=== PATIENT | female | born 1945 | race Caucasian/White ===

== ENCOUNTER 2019-04-22 07:00 | Outpatient (CLI) | payer MEDICARE, SELFPAY ==
[2019-04-22 11:22] LABS: Basophils # 0.1 10^3/uL (0.0-0.1); Basophils % 1.1 %; Eosinophils # 0.3 10^3/uL (0.0-0.8); Eosinophils % 3.1 %; Hematocrit 41.7 % (37.0-47.0); Hemoglobin 13.1 g/dL (11.5-15.3); Lymphocytes # 2.2 10^3/uL (0.8-4.8); Mean Corpuscular HGB Conc 31.4 g/dL (30.0-36.0); Mean Corpuscular Hemoglobin 30.9 pg (28.0-34.0); Mean Corpuscular Volume 98.3 fL (81-99); Mean Platelet Volume 11.1 fL (7.4-10.4); Monocytes # 0.7 10^3/uL (0.2-0.9); Monocytes % 7.2 %; Neutrophils # 6.5 10^3/uL (1.8-7.7); Nucleated Red Blood Cells % 0 %; Platelet Count 222 10^3/cmm (130-400); Red Blood Count 4.24 10^6/uL (4.1-5.3); Red Cell Distribution Width 13.9 % (12.1-15.1)
[2019-04-22 11:35] LABS: Alanine Aminotransferase 24 U/L (0-33); Albumin Level 4.1 g/dL (3.5-5.2); Alkaline Phosphatase 57 IU/L (35-105); Anion Gap 16.4 (5-19); Aspartate Amino Transferase 16 U/L (0-32); Blood Urea Nitrogen 15 mg/dL (8-23); Calcium 9.5 mg/dL (8.5-10.5); Carbon Dioxide 26 mmol/L (22-29); Chloride 104 mmol/L (98-107); Globulin 3.5 g/dL (1.3-4.6); Glucose 93 mg/dL (65-115); Lactate Dehydrogenase 158 U/L (135-214); Potassium 4.4 mmol/L (3.5-5.1); Sodium 142 mmol/L (136-145); Total Bilirubin 0.8 mg/dL (0.15-1.2); Total Protein 7.6 g/dL (6.6-8.7)
[2019-04-28 15:31] LABS: P210 BCR ALB1 Detected; Prior Results See Report
== END 2019-04-22 07:01 | disposition home or self-care (01) ==
LOC: ONCMED 11:08
PROVIDERS: Family Provider Family Medicine; PCP Internal Medicine Medical Oncology; Visit Provider Internal Medicine Medical Oncology
DX: C92.10 Chronic myeloid leukemia, BCR/ABL-positive, not having achieved remission (principal)
CPT/HCPCS: 36415; 80053; 81206; 83615; 85025

== ENCOUNTER 2019-04-29 13:27 | Outpatient (CLI) | payer MEDICARE, SELFPAY ==
--- NOTE | 2019-04-30 06:41 | ONC FU_ITS ---
Dr. Haile Patient Follow-Up Note Patient: Dhara Aguirre Unit #: [id number]: 1945 Dicatated By: Oscar Haile M.D.Date of Visit:Apr 29, 2019 Onc Med Follow-up/Prog Note Chief Complaint: Chronic myeloid leukemia. History of Present Illness: This is a 73 year-old woman with [place] positive chronic myeloid leukemia. She had been admitted to [facility] in April 2015. Her CBC at that time showed severe leukocytosis with WBC of 193,000 with myeloid predominance and thrombocytosis, platelet count 1,500,000. BCR/abl transcripts and chromosomal translocation was reported on the bone marrow biopsy, 4% blasts. LDH more than 400. She began on the therapy with hydroxyurea 1000 mg twice a day and allopurinol. She was first seen here by Dr. Gurrolaarian was first seen on 05/31/2015. CT of the abdomen and pelvis on 06/09/2015 showed mild hepatosplenomegaly. Quantitative PCR/abl was 54.75 IS. With hydroxyurea her WBC and platelets normalized. Nilotinib 300 mg twice a day began on 06/16/2015. Just 5 days later she was admitted with sepsis, pansinusitis, progressive myalgias, muscle spasms, back pain and she was also noted to have significant pancytopenia, including platelets at 53,000. Nilotinib was stopped. CT of the chest 06/20/2015 showed no pulmonary embolism, but she had subsegmental scattered pulmonary nodules and small mediastinal lymphadenopathy up to 13 mm in the right hilum. Bone scan on 06/22/2015 showed T6 subacute fracture. Echocardiogram on 06/20/2015 showed normal EF 55%, moderate aortic stenosis. Following recovery of her hematological toxicities, nilotinib was restarted on 06/29/2015 at a reduced dosage of 150 mg every other day. She tolerated it well, and she apparently had a good response. However, following her visit with Dr. Hope in July 2015 she failed to return for further followup. On 02/01/2017 she was seen by Dr. Mendoza with multiple complaints including weakness, cough, headache, and leg pain. She had fallen at home. She was evaluated in the emergency and subsequently transferred to [facility] for admission with suspected cerebral hemorrhage. The CT findings there were felt to be more consistent with meningioma near the right vertex. Extra-axial hemorrhage was felt to be unlikely. Her evaluation, though, also revealed a markedly elevated WBC 509,000 with hemoglobin 7.1 g and platelet count 950,000. She apparently also had evidence of pneumonia. She was given antibiotic therapy. She began treatment with hydroxyurea along with allopurinol, and she then began imatinib at 400 mg daily. She was transferred to [facility] at discharge, but the imatinib apparently was not continued there. She subsequently was able to return home to the care of her daughter. A repeat CBC on 02/20/2017 showed hemoglobin up to 8.9 g with WBC 5000 and platelet count 288,000. She was advised to stop the hydroxyurea. She restarted imatinib at 400 mg daily on 02/24/2017. Her quantitative PCR for BCR/abl came back at 23.54. I had seen her initially on 03/06/2017. At that point she was off hydroxyurea, and she continued imatinib at 400 mg daily. On her follow-up CBC from 03/15/2017 her hemoglobin had dropped to 9.3 g with white blood cell count 2100 and platelet count 204,000. With the decline in her blood count, did have her stop the imatinib. Her blood counts had subsequently increased significantly. I had seen her for a follow-up visit on 04/10/2017. At that point she restarted hydroxyurea together with imatinib at 400 mg daily. Her medical history is significant for a previous stroke associated with cerebral aneurysm, for which she underwent some type of clipping procedure sometime around 1998. She has had significant associated short-term memory loss/dementia. Her other medical illnesses include COPD and moderate aortic stenosis. Other surgeries include hysterectomy/BSO and tonsillectomy. She has a prior history of smoking up to 2 packs of cigarettes daily. She does not drink alcohol. Her family history is positive for heart disease, diabetes, and stroke. INTERIM HISTORY: Her subsequent CBCs had shown gradual decline in her white count. As of 05/07/2017 it was down to 3300 with hemoglobin slightly low at 11.5 g and platelet count normal at 201,000. At that point she was advised to stop the hydroxyurea. She continued the imatinib at 400 mg daily. As of her follow-up visit on 08/14/2017 her quantitative PCR was back up to 46.6208, and at that point she increased the imatinib dosage to 400 mg twice a day. As of her follow-up visit on 11/25/2017 her quantitative PCR remained significantly elevated, and at that point her treatment was transitioned to nilotinib at a reduced dosage of 150 mg twice a day. As of 02/14/2018 the quantitative PCR was down to 7.5063 compared to 20.4411 in November 2017. However, her repeat quantitative PCR on 06/21/2018 had increased to 13.650, and following her visit on 07/05/2018 the nilotinib dosage was increased to 300 mg twice a day. She failed to return for her scheduled visit in October. As of her follow-up visit in January 2019 the quantitative PCR had decreased to 7.358. She continued meloxicam 300 mg twice daily. She is seen for a follow-up visit. She has been doing okay. She is not very active, and her daughter indicates that she prefers mostly to just sit. Her ECOG score is 2. Her appetite has been good. She recently had fever in association with a cold. She has not had night sweating. She still has some residual cough. She does not complain of shortness of breath or chest pain. She has diarrhea about every other day. It is managed adequately with anti-diarrhea medication. She has frequent urination. Her pain is managed adequately with medication. She has headaches and her balance is not good. She has had decline in cognitive function, and her daughter thinks that she may now be deveoping dementia. Medications: Acetaminophen 1 (325 mg) Capsule Oral four times a day PRN, Albuterol Sulfate 1 ((2.5 mg/3ml) 0.083%) Nebulization solution Inhalation four times a day PRN, Aspirin 1 (81 mg) Tablet Oral daily, Daytime Cold & Flu Relief 1 Capsule (of 10-5-325 mg) Oral daily, Hydrocodone-Acetaminophen 1 (10-325 mg) Tablet Oral t.i.d. PRN, Ibuprofen 1 (200 mg) Capsule Oral four times a day PRN, Loratadine 1 Tablet (of 10 mg) Oral daily, Melatonin 1 (10 mg) Tablet Oral at bedtime PRN, Multiple Vitamin 1 Tablet Oral daily, Tasigna 2 Tablet (of 150 mg) Capsule Oral b.i.d. Allergies: Penicillin G Benzathine and Sulfabenzamide. Review of Systems: Constitutional - Her energy is low. She is up and around at home. Her appetite is good and her weight is stable. About 2 weeks ago, she ran a fever with a cold. No chills, hot flashes, or night sweats. ECOG score is 2, ENMT - No sinus congestion/drainage. No mouth sores. No sore throat or difficulty swallowing, Hematologic/Lymphatic - She bruises easily, Respiratory - No shortness of breath. She has a slight cough. No pleuritic pain or hemoptysis, Cardiovascular - No angina pain. No palpitations, Gastrointestinal - No nausea or vomiting. No heartburn or acid reflux. She has frequent diarrhea, probably about every other day. She takes Imodium to help control her bowels. No blood in the stool or black stools, Genitourinary (F) - No dysuria or hematuria. She has urinary frequency. No urgency or incontinence, Musculoskeletal - No joint or bone pain, Integumentary - No skin complications, Neurologic - She has a headache. She has some weakness and dizziness when she first gets up. No numbness/paresthesias or other focal neurologic symptoms, Psychiatric - No anxiety or depression. No insomnia. Vital Signs: Performed on Apr 29, 2019 13:58 Height - 62.50 in Weight - 154.4 lbs (LOW) BSA - 1.72 sq.m BMI - 27.79 Temperature - 97.9 F (LOW) Pulse - 91 /min Respiration - 18 /min BP - 125/67 mm(hg) O2 Sat - 97 % Pain - 6 Physical Examination: Constitutional - She does not appear acutely ill, Eyes - Sclerae nonicteric. Conjunctivae clear, ENMT - No lesions noted in the oral cavity, Hematologic/Lymphatic - No cervical, clavicular, or axillary adenopathy, Respiratory - Lungs sound clear with diminished air movement bilaterally, Cardiovascular - Heart rhythm is regular. There is a II/ systolic murmur. There is no gallop or rub noted, Abdomen - Soft. Liver and spleen are not enlarged. There is no abdominal mass or ascites noted and there is no inguinal adenopathy, Extremities - No edema, Neurologic - No focal neurologic deficits noted. Lab/Imaging: Test performed on Apr 22, 2019 07:00 LDH (Total) 158 U/L Sodium 142 mmol/L Potassium 4.4 mmol/L Chloride 104 mmol/L CO2 26 mmol/L Anion Gap 16.4 BUN 15 mg/dL Creatinine 0.9 mg/dL Cr Clearance (Est) 60.8700 mL/min Glucose 93 mg/dL Calcium 9.5 mg/dL Protein, Total 7.6 g/dL Albumin 4.1 g/dL Globulin 3.5 g/dL Bilirubin, Total 0.8 mg/dL ALT (SGPT) 24 U/L AST (SGOT) 16 U/L Alkaline Phosphatase 57 IU/L WBC 10.0 10 3/uL RBC 4.24 10 6/uL HGB 13.1 g/dL HCT 41.7 % MCV 98.3 fL MCH 30.9 pg MCHC 31.4 g/dL RDW 13.9 % Platelet Count 222 10 3/cmm MPV 11.1 fL Neutrophils 6.5 10 3/uL Lymphocytes 2.2 10 3/uL Monocytes 0.7 10 3/uL Eosinophils 0.3 10 3/uL Basophils 0.1 10 3/uL Neutrophil % 65.0 % Lymphocyte % 22.0 % Monocyte % 7.2 % Eosinophil % 3.1 % Basophils % 1.1 % The quantitative PCR for BCR/abl has increased to 17.154. Impression: 1. Patient with [place] chromosome positive chronic myelooid leukemia, initially diagnosed in April 2015. 2. She had a good response to initial treatment with hydroxyurea, following which she began treatment with nilotinib. She experienced multiple toxicities with a standard dosage of 300 mg bid. 3. She tolerated it well at a reduced dosage of 150 mg every other day. She subsequently was lost to followup and stopped treatment sometime during 2017. Reasons for that are unclear. 4. She was admitted to [facility] on 02/02/2017 with evidence of relapse/progression include WBC > 500,000, Hg 7.1 g, and platelet count 950,000. She was felt to be in chronic phase, though. She had responded well to hydroxyurea, which was stopped as of 02/20/2017. 5. She then began treatment with imatinib 400 mg daily. Her other medical illnesses include: 6. She underwent clipping of cerebral aneurysm approximately 1998. She had associated stroke with subsequent dementia/short term memory loss. 7. COPD with recent pneumonia. 8. She has moderate aortic stenosis by echocardiogram. She had initially continued the imatinib at 400 mg daily. As of 03/15/2017 her treatment was put on hold due to declining blood counts with hemoglobin down to 9.3 g and white blood cell count down to 2100. As of her follow-up visit on 04/10/2017 her blood counts had increased significantly, and at that point she restarted hydroxyurea in combination with imatinib 400 mg daily. Her subsequent CBCs had shown gradual decline in her white blood cell count, and she remained slightly anemic. As of 05/07/2017 the hydroxyurea was discontinued. She continued imatinib at 400 mg daily. She had been showing gradual improvement in her performance status. However, as of her follow-up in August 2017 there was a significant increase in her quantitative PCR. Her imatinib dosage was then increased to 400 mg twice a day. As of November 2017 her quantitative PCR remained significantly elevated, and at that point her treatment was transitioned to nilotinib at a reduced dosage of 150 mg twice a day. As of February 2018 the PCR there was a significant decline in the quantitative PCR. She has tolerated it well at that dosage. However, her repeat PCR on 06/21/2018 was significantly increased, and following her visit on 07/05/2018 the nilotinib dosage was increased to 300 mg twice a day. She has been able to tolerate it with acceptable toxicity. Initially her quantitative PCR had shown a significant decline, but it is now increasing again. Her overall clinical status appears stable, though her daughter feels that she is showing some further decline in her cognitive function. Plan: She will have further evaluation with a BCR/abl mutation analysis. She will be started on a 3rd-line treatment when those results are available. Signed By: Oscar Haile M.D. <<Signature on File>>
== END 2019-04-29 13:28 | disposition home or self-care (01) ==
LOC: ONCMED 13:30
PROVIDERS: Family Provider Family Medicine; PCP Internal Medicine Medical Oncology; Visit Provider Internal Medicine Medical Oncology
DX: C92.10 Chronic myeloid leukemia, BCR/ABL-positive, not having achieved remission (principal); I35.0 Nonrheumatic aortic (valve) stenosis; J44.9 Chronic obstructive pulmonary disease, unspecified; F17.210 Nicotine dependence, cigarettes, uncomplicated; F03.90 Unspecified dementia, unspecified severity, without behavioral disturbance, psychotic disturbance, mood disturbance, and anxiety; Z79.82 Long term (current) use of aspirin; Z79.899 Other long term (current) drug therapy; Z87.01 Personal history of pneumonia (recurrent); Z86.73 Personal history of transient ischemic attack (TIA), and cerebral infarction without residual deficits
CPT/HCPCS: 36415; 81206; 99214

== ENCOUNTER 2019-09-17 14:18 | Outpatient (CLI) | payer MEDICARE, SELFPAY ==
[2019-09-17 15:07] LABS: Basophils # 0.2 10^3/uL (0.0-0.1); Eosinophils # 0.4 10^3/uL (0.0-0.8); Eosinophils % 3.5 %; Hematocrit 42.7 % (37.0-47.0); Hemoglobin 13.5 g/dL (11.5-15.3); Lymphocytes # 2.6 10^3/uL (0.8-4.8); Lymphocytes % 25.2 %; Mean Corpuscular HGB Conc 31.6 g/dL (30.0-36.0); Mean Corpuscular Hemoglobin 32.1 pg (28.0-34.0); Mean Corpuscular Volume 101.4 fL (81-99); Mean Platelet Volume 10.1 fL (7.4-10.4); Monocytes # 0.7 10^3/uL (0.2-0.9); Monocytes % 6.7 %; Neutrophils # 6.09 10^3/uL (1.8-7.7); Neutrophils % 60.1 %; Nucleated Red Blood Cells % 0 %; Platelet Count 213 10^3/cmm (130-400); Red Blood Count 4.21 10^6/uL (4.1-5.3); Red Cell Distribution Width 13.3 % (12.1-15.1); White Blood Count 10.1 10^3/uL (4.0-10.0)
[2019-09-17 15:22] LABS: Alanine Aminotransferase 17 U/L (0-33); Albumin Level 4.6 g/dL (3.5-5.2); Alkaline Phosphatase 58 IU/L (35-105); Anion Gap 12.2 (5-19); Aspartate Amino Transferase 13 U/L (0-32); Blood Urea Nitrogen 12 mg/dL (8-23); Calcium 9.1 mg/dL (8.5-10.5); Carbon Dioxide 30 mmol/L (22-29); Chloride 101 mmol/L (98-107); Globulin 2.9 g/dL (1.3-4.6); Glucose 72 mg/dL (65-115); Lactate Dehydrogenase 148 U/L (135-214); Osmolality Calculated 283 mOsm/kg (285-295); Potassium 4.2 mmol/L (3.5-5.1); Sodium 139 mmol/L (136-145); Total Bilirubin 0.3 mg/dL (0.15-1.2); Total Protein 7.5 g/dL (6.6-8.7)
[2019-10-21 14:31] LABS: Source SEE COMMENTS
== END 2019-09-17 14:19 | disposition home or self-care (01) ==
LOC: ONCMED 15:05
PROVIDERS: PCP Internal Medicine Medical Oncology; Visit Provider Internal Medicine Medical Oncology
DX: C92.10 Chronic myeloid leukemia, BCR/ABL-positive, not having achieved remission (principal); M81.0 Age-related osteoporosis without current pathological fracture; I35.0 Nonrheumatic aortic (valve) stenosis; I67.1 Cerebral aneurysm, nonruptured
CPT/HCPCS: 80053; 81206; 83615; 85025

== ENCOUNTER 2019-09-24 09:20 | Outpatient (CLI) | payer MEDICARE, SELFPAY ==
--- NOTE | 2019-09-25 06:08 | ONC FU_ITS ---
Dr. Haile Patient Follow-Up Note Patient: Dhara Aguirre Unit #: [id number]: 1945 Dicatated By: Oscar Haile M.D.Date of Visit:Sep 24, 2019 Onc Med Follow-up/Prog Note Chief Complaint: Chronic myeloid leukemia. History of Present Illness: This is a 74 year-old woman with [place] positive chronic myeloid leukemia. She had been admitted to [facility] in April 2015. Her CBC at that time showed severe leukocytosis with WBC of 193,000 with myeloid predominance and thrombocytosis, platelet count 1,500,000. BCR/abl transcripts and chromosomal translocation was reported on the bone marrow biopsy, 4% blasts. LDH more than 400. She began on the therapy with hydroxyurea 1000 mg twice a day and allopurinol. She was first seen here by Dr. Gurrolaarian was first seen on 05/31/2015. CT of the abdomen and pelvis on 06/09/2015 showed mild hepatosplenomegaly. Quantitative PCR/abl was 54.75 IS. With hydroxyurea her WBC and platelets normalized. Nilotinib 300 mg twice a day began on 06/16/2015. Just 5 days later she was admitted with sepsis, pansinusitis, progressive myalgias, muscle spasms, back pain and she was also noted to have significant pancytopenia, including platelets at 53,000. Nilotinib was stopped. CT of the chest 06/20/2015 showed no pulmonary embolism, but she had subsegmental scattered pulmonary nodules and small mediastinal lymphadenopathy up to 13 mm in the right hilum. Bone scan on 06/22/2015 showed T6 subacute fracture. Echocardiogram on 06/20/2015 showed normal EF 55%, moderate aortic stenosis. Following recovery of her hematological toxicities, nilotinib was restarted on 06/29/2015 at a reduced dosage of 150 mg every other day. She tolerated it well, and she apparently had a good response. However, following her visit with Dr. Hope in July 2015 she failed to return for further followup. On 02/01/2017 she was seen by Dr. Mendoza with multiple complaints including weakness, cough, headache, and leg pain. She had fallen at home. She was evaluated in the emergency and subsequently transferred to [facility] for admission with suspected cerebral hemorrhage. The CT findings there were felt to be more consistent with meningioma near the right vertex. Extra-axial hemorrhage was felt to be unlikely. Her evaluation, though, also revealed a markedly elevated WBC 509,000 with hemoglobin 7.1 g and platelet count 950,000. She apparently also had evidence of pneumonia. She was given antibiotic therapy. She began treatment with hydroxyurea along with allopurinol, and she then began imatinib at 400 mg daily. She was transferred to [facility] at discharge, but the imatinib apparently was not continued there. She subsequently was able to return home to the care of her daughter. A repeat CBC on 02/20/2017 showed hemoglobin up to 8.9 g with WBC 5000 and platelet count 288,000. She was advised to stop the hydroxyurea. She restarted imatinib at 400 mg daily on 02/24/2017. Her quantitative PCR for BCR/abl came back at 23.54. I had seen her initially on 03/06/2017. At that point she was off hydroxyurea, and she continued imatinib at 400 mg daily. On her follow-up CBC from 03/15/2017 her hemoglobin had dropped to 9.3 g with white blood cell count 2100 and platelet count 204,000. With the decline in her blood count, did have her stop the imatinib. Her blood counts had subsequently increased significantly. I had seen her for a follow-up visit on 04/10/2017. At that point she restarted hydroxyurea together with imatinib at 400 mg daily. Her subsequent CBCs had shown gradual decline in her white count. As of 05/07/2017 it was down to 3300 with hemoglobin slightly low at 11.5 g and platelet count normal at 201,000. At that point she was advised to stop the hydroxyurea. She continued the imatinib at 400 mg daily. As of her follow-up visit on 08/14/2017 her quantitative PCR was back up to 46.6208, and at that point she increased the imatinib dosage to 400 mg twice a day. As of her follow-up visit on 11/25/2017 the PCR remained significantly elevated, and at that point her treatment was transitioned to nilotinib at a reduced dosage of 150 mg twice a day. As of 02/14/2018 the quantitative PCR was down to 7.5063 compared to 20.4411 in November 2017. However, her repeat quantitative PCR on 06/21/2018 had increased to 13.650, and following her visit on 07/05/2018 the nilotinib dosage was increased to 300 mg twice a day. She failed to return for her scheduled visit in October 2018. Her medical history is significant for a previous stroke associated with cerebral aneurysm, for which she underwent some type of clipping procedure sometime around 1998. She has had significant associated short-term memory loss/dementia. Her other medical illnesses include COPD and moderate aortic stenosis. Other surgeries include hysterectomy/BSO and tonsillectomy. She has a prior history of smoking up to 2 packs of cigarettes daily. She does not drink alcohol. Her family history is positive for heart disease, diabetes, and stroke. INTERIM HISTORY: As of January 2019 the quantitative PCR had decreased to 7.358. She continued nilotinib 300 mg twice daily. At her follow-up visit in April 2019 the quantitative PCR has increased to 17.154. 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 I did recommend that she stop the nilotinib. She is seen for a follow-up visit. She has been feeling pretty good generally, though she does have ongoing issues related to the underlying vascular dementia. Her activity is fairly limited. ECOG score is 2. She has good appetite. Her weight is up a couple pounds. She has not had fever or night sweats. Her daughter says that she is always cold. She has shortness of breath and wheezing with more strenuous activity. She uses an inhaler as needed. She does have some cough. She does not complain of chest pain. Her daughter says that she has been having diarrhea a lot, typically right after she eats. Her stools are sometimes liquid. She has no other GI or complaints. She has pain in her neck and back, which is chronic. It is managed adequately with the hydrocodone/APAP. She complains that she has headache a lot and she does tend to be wobbly when she first gets up. She has no focal neurologic symptoms. Her daughter says that she is up and down a lot at night. Medications: Acetaminophen 1 (325 mg) Capsule Oral four times a day PRN, Albuterol Sulfate 1 ((2.5 mg/3ml) 0.083%) Nebulization solution Inhalation four times a day PRN, Aspirin 1 (81 mg) Tablet Oral daily, Daytime Cold & Flu Relief 1 Capsule (of 10-5-325 mg) Oral daily PRN, Hydrocodone-Acetaminophen 1 (10-325 mg) Tablet Oral t.i.d. PRN, Ibuprofen 1 (200 mg) Capsule Oral four times a day PRN, Loratadine 1 Tablet (of 10 mg) Oral daily, Melatonin 1 (10 mg) Tablet Oral at bedtime PRN, Multiple Vitamin 1 Tablet Oral daily Allergies: Penicillin G Benzathine and Sulfabenzamide. Review of Systems: Constitutional - She is generally feeling okay. Her energy is fair. She does not do a lot but is up and around at home. Her appetite is good and weight is up a few pounds. No fever, night sweats, or hot flashes. ECOG score is 2, ENMT - She has some sinus congestion/drainage. No mouth sores. She has a slight sore throat. No difficulty swallowing, Hematologic/Lymphatic - She bruises easily, Respiratory - She gets shortness of breath with exertion. She uses a inhaler as needed. No cough. No pleuritic pain or hemoptysis, Cardiovascular - No angina pain. No palpitations, Gastrointestinal - No nausea or vomiting. No heartburn or acid reflux. She has frequent diarrhea, 2-3 times daily. No constipation. No blood in the stool or black stools. She has occasional incontinence of stool, Genitourinary (F) - No dysuria or hematuria. No urinary frequency. No urgency or incontinence, Musculoskeletal - She has pain in her neck and back. Her pain is adequately managed with hydrocodone-APAP 10-325 mg, Integumentary - No skin complications, Neurologic - She has frequent headaches, she takes ibuprofen for this. No has occasional dizziness upon standing. No numbness or tingling. No other focal neurologic symptoms, Psychiatric - No anxiety or depression. She has dementia. She does not sleep well. She has tried Melatonin for this without effectiveness. Vital Signs: Performed on Sep 24, 2019 09:39 Height - 62.50 in Weight - 157.0 lbs (HIGH) BSA - 1.73 sq.m BMI - 28.26 Temperature - 98.6 F Pulse - 84 /min Respiration - 24 /min BP - 115/65 mm(hg) O2 Sat - 95 % (LOW) Pain - 8 Physical Examination: Constitutional - She looks pretty good generally, Eyes - Sclerae nonicteric. Conjunctivae clear, ENMT - No lesions noted in the oral cavity, Hematologic/Lymphatic - No cervical, clavicular, or axillary adenopathy, Respiratory - Lungs sound clear with diminished air movement bilaterally, Cardiovascular - Heart rhythm is regular. There is a II/ systolic murmur. There is no gallop or rub noted, Abdomen - Soft. Liver and spleen are not enlarged. There is no abdominal mass or ascites noted and there is no inguinal adenopathy, Extremities - No edema, Neurologic - No focal neurologic deficits noted. Lab/Imaging: Test performed on Sep 17, 2019 14:31 WBC 10.1 10 3/uL RBC 4.21 10 6/uL HGB 13.5 g/dL HCT 42.7 % MCV 101.4 fL MCH 32.1 pg MCHC 31.6 g/dL RDW 13.3 % Platelet Count 213 10 3/cmm MPV 10.1 fL Neutrophils 6.09 10 3/uL Lymphocytes 2.6 10 3/uL Monocytes 0.7 10 3/uL Eosinophils 0.4 10 3/uL Basophils 0.2 10 3/uL Neutrophil % 60.1 % Lymphocyte % 25.2 % Monocyte % 6.7 % Eosinophil % 3.5 % Basophils % 2.0 % NRBC % 0 % Test performed on Sep 17, 2019 14:18 LDH (Total) 148 U/L Sodium 139 mmol/L Potassium 4.2 mmol/L Chloride 101 mmol/L CO2 30 mmol/L Anion Gap 12.2 BUN 12 mg/dL Creatinine 0.8 mg/dL Cr Clearance (Est) 67.1800 mL/min Glucose 72 mg/dL Calcium 9.1 mg/dL Protein, Total 7.5 g/dL Albumin 4.6 g/dL Globulin 2.9 g/dL Bilirubin, Total 0.3 mg/dL ALT (SGPT) 17 U/L AST (SGOT) 13 U/L Alkaline Phosphatase 58 IU/L Impression: 1. Patient with [place] chromosome positive chronic myelooid leukemia, initially diagnosed in April 2015. 2. She had a good response to initial treatment with hydroxyurea, following which she began treatment with nilotinib. She experienced multiple toxicities with a standard dosage of 300 mg bid. 3. She tolerated it well at a reduced dosage of 150 mg every other day. She subsequently was lost to followup and stopped treatment sometime during 2017. Reasons for that are unclear. 4. She was admitted to [facility] on 02/02/2017 with evidence of relapse/progression include WBC > 500,000, Hg 7.1 g, and platelet count 950,000. She was felt to be in chronic phase, though. She had responded well to hydroxyurea, which was stopped as of 02/20/2017. 5. She then began treatment with imatinib 400 mg daily. Her other medical illnesses include: 6. She underwent clipping of cerebral aneurysm approximately 1998. She had associated stroke with subsequent dementia/short term memory loss. 7. COPD with recent pneumonia. 8. She has moderate aortic stenosis by echocardiogram. She had initially continued the imatinib at 400 mg daily. As of 03/15/2017 her treatment was put on hold due to declining blood counts with hemoglobin down to 9.3 g and white blood cell count down to 2100. As of her follow-up visit on 04/10/2017 her blood counts had increased significantly, and at that point she restarted hydroxyurea in combination with imatinib 400 mg daily. Her subsequent CBCs had shown gradual decline in her white blood cell count, and she remained slightly anemic. As of 05/07/2017 the hydroxyurea was discontinued. She continued imatinib at 400 mg daily. She had been showing gradual improvement in her performance status. However, as of her follow-up in August 2017 there was a significant increase in her quantitative PCR. Her imatinib dosage was then increased to 400 mg twice a day. As of November 2017 her quantitative PCR remained significantly elevated, and at that point her treatment was transitioned to nilotinib at a reduced dosage of 150 mg twice a day. As of February 2018 the PCR there was a significant decline in the quantitative PCR. She has tolerated it well at that dosage. However, her repeat PCR on 06/21/2018 was significantly increased, and following her visit on 07/05/2018 the nilotinib dosage was increased to 300 mg twice a day. She was able to tolerate it with acceptable toxicity. Initially her quantitative PCR had shown a significant decline, but as of April 2019 it had increased to 17.154. 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 She was advised to stop the nilotinib. Since then her clinical status has remained stable. Her current CBC suggest a slightly elevated white blood cell count of 10,100 with normal hemoglobin/hematocrit and normal platelet count. Her quantitative PCR has actually decreased, now to 7.418%. Plan: We have discussed the possibility of initiating a trial of therapy with ponatinib. Her daughter is aware that it has an associated risk of thromboembolism, which could be significant in the setting of known vascular dementia. With her current PCR actually decreasing, it may be best for now to just continue on observation/expectant management, as there may potentially be more risk than benefit with treatment. At least for now I will plan a follow-up visit in 3 months. In the meantime, she will be given a prescription for trazodone 50 mg to take at bedtime. Signed By: Oscar Haile M.D. <<Signature on File>>
== END 2019-09-24 09:21 | disposition home or self-care (01) ==
LOC: ONCMED 09:29
PROVIDERS: PCP Family Medicine; Visit Provider Internal Medicine Medical Oncology
DX: C92.10 Chronic myeloid leukemia, BCR/ABL-positive, not having achieved remission (principal); I69.311 Memory deficit following cerebral infarction; F01.50 Vascular dementia, unspecified severity, without behavioral disturbance, psychotic disturbance, mood disturbance, and anxiety; J44.9 Chronic obstructive pulmonary disease, unspecified; I35.0 Nonrheumatic aortic (valve) stenosis; Z79.899 Other long term (current) drug therapy; Z87.891 Personal history of nicotine dependence
CPT/HCPCS: 99214

== ENCOUNTER → 2019-12-11 11:32 | Outpatient (BNVA) | payer MEDICARE, SELFPAY | PROVIDERS: PCP Family Medicine; Visit Provider Nurse Practitioner Family | DX: Z11.59 Encounter for screening for other viral diseases (principal); Z20.828 Contact with and (suspected) exposure to other viral communicable diseases; J06.9 Acute upper respiratory infection, unspecified | CPT/HCPCS: 87635 ==

== ENCOUNTER 2020-04-12 09:58 | Emergency (ER) | payer MEDICARE, SELFPAY ==
[2020-04-12 10:00] VITALS: BP 128/55; PULSE 88; RESP 18; TEMP 36.9; O2SAT 94; BMI 36.1
--- NOTE | 2020-04-12 10:07 | XRR_ITS ---
PROCEDURE INFORMATION: Exam: XR Chest, 1 View Exam date and time: 04/12/2020 10:16 AM Age: 74 years old Clinical indication: Injury or trauma; Cough and dyspnea; Blunt trauma (contusions or hematomas); Patient HX: No chest complaints, slurred speech, no vision right eye, fall; Additional info: Dyspnea/cough TECHNIQUE: Imaging protocol: XR of the chest Views: 1 view. COMPARISON: CR Chest 2 views* [id number] 01/27/2019 9:47 AM FINDINGS: Lungs: Numerous benign calcified granulomas are present in both lungs with calcified hilar and mediastinal lymph nodes. There is no pneumonia. Pleural spaces: Unremarkable. No pleural effusion. No pneumothorax. Heart/Mediastinum: The heart is not enlarged. There is calcification of the aorta. Bones/joints: Unremarkable. XR/XR chest 1V portable [id number] IMPRESSION: No acute abnormalities are seen.
--- NOTE | 2020-04-12 10:08 | ECG_ITS ---
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
--- NOTE | 2020-04-12 10:08 | CT_ITS ---
WS: [id number] CT HEAD TECHNIQUE: Noncontrast CT of the head obtained from the skullbase to the vertex. CLINICAL INFORMATION: AMS COMPARISON: February 02, 2017 DLP: 760.[address] scans at [facility] use at least one of these dose optimization techniques: automat ed exposure control; mA and/or kV adjustment per patient size (includes targeted exams where dose is matched to clinical indication); or iterative reconstruction. FINDINGS: Postoperative changes left temporal craniotomy with left supraclinoid ICA aneurysm clips. This result s in beam hardening artifact. Multiple chronic infarcts with encephalomalacia. More recent appearing likely subacute infarcts involving the right parietal lobe, right temporooccipi chantel junction, and multiple areas in the left cerebellum. These are new since 2017. Suggestion of a ti ny amount of mass effect on the right temporal horn. No intracranial hemorrhage. Chronic infarcts with encephalomalacia involving the left frontal lobe, bilateral inferior frontal lo bes, and left anterior temporal lobe. Chronic appearing lacunar infarcts in the right cerebellum. No hydrocephalus. Cavum septum pellucidum. Mastoid air cells and paranasal sinuses are well aerated. CT/CT head wo con* [id number] IMPRESSION: 1. Suspected subacute areas of ischemia involving the right parietal lobe and right parietal occipital junction extending into the posterior right temporal l obe. Suggestion of minimal mass effect on the right temporal horn. 2. Additional suspected subacute infarcts involving the left cerebellum. 3. Additional chronic infarcts described above. 4. No hemorrhage or hydrocephalus. Notified Jakub Feliz DO at 04/12/2020 11:02 AM.
[2020-04-12 10:24] LABS: Hematocrit 36.6 % (37.0-47.0); Hemoglobin 11.3 g/dL (11.5-15.3); Mean Corpuscular HGB Conc 30.9 g/dL (30.0-36.0); Mean Corpuscular Hemoglobin 32.1 pg (28.0-34.0); Mean Platelet Volume 12.3 fL (7.4-10.4); Platelet Count 596 10^3/cmm (130-400); Red Blood Count 3.52 10^6/uL (4.1-5.3); Red Cell Distribution Width 18.3 % (12.1-15.1)
[2020-04-12 10:30] LABS: ABG PCO2 39.7 mmHg (35-45); ABG PH Result 7.41 (7.35-7.45); Alveolar-Arterial Oxygen Gradi 5.4 mmHg (5-10); Base Excess ABG 0.3 mmol/L (-2.0-2.0); Blood Gas Allen Test Pos; Blood Gas Operator Identificat MONRO; Blood Gas Sample Site Radial, right; Blood Gas Sample Type Arterial; Carboxyhemoglobin 1.2 %THgb (0.4-20.1); HGB O2 Sat 91.9 % (95-100); Ionized Calcium Level - ABG 1.2 mmol/L (1.1-1.4); Methemoglobin 0.3 % (0.4-1.5); Oxygen Device ROOM AIR; Oxygen Saturation ABG 93.3; PO2 ABG 59.4 mmHg (80.0-100.0); Potassium Level - ABG 3.8 mmol/L (3.5-5.0); Total Hemoglobin 11.4 g/dL (12-16)
--- NOTE | 2020-04-12 10:37 | W.ED.AMS ---
HPI - Altered Mental Status General: Chief Complaint: Altered Mental Status Stated Complaint: AMS Time Seen by Provider: 04/12/20 10:06 History of Present Illness: HPI narrative: 74-year-old female with a history of chronic lymphocytic leukemia. Daughter is with her states over the last 24 hours she has had a sharp decline in her mental status. She was having difficulty finding her bedroom in the home. She is awake and alert and answers questions although she answers everything in the negative. She denies having any issues. She does not seem to be aware that there is any ongoing issues. Per the daughter the recently found that her CLL was worsening and they really did not have any other treatment options left. She previously had a clipping of a cerebral aneurysm in 1998. She has a history of moderate aortic stenosis and COPD. Her notes from oncology were reviewed today. The daughter reported today that and overnight besides the confusion she complained some weakness in her right arm. MD complaint: altered mental status Onset (ago): day(s) Timing confirmed by: family member Severity: mild Consistency of symptoms: Getting Worse Context: other (CLL) Review of Systems Const: Denies: fever(s), chills, body aches, change in appetite, fatigue or malaise ENMT: Denies: throat pain, ear or mastoid pain, nasal discharge or nasal congestion Card: Denies: chest pain, edema, dyspnea on exertion or orthopnea Resp: Denies: dyspnea, productive cough or non-productive cough GI: Denies: abdominal pain, nausea, vomiting, hematemesis, coffee ground emesis, diarrhea, constipation, bloating, hematochezia or melena : Denies: flank pain, difficulty voiding, dysuria, urinary frequency or urinary urgency Skin/Breast: Denies: rash or pruritus Physical Exam Const: COMMON NORMALS: no acute distress GENERAL APPEARANCE: cooperative and comfortable ORIENTATION/CONSCIOUSNESS: Yes awake HENMT: COMMON NORMALS: normocephalic, atraumatic, hearing grossly normal bilaterally, external ears normal, EAC's normal, TM's normal bilaterally, Normal nasal mucous membranes and turbinates present, moist oral mucous membranes and oropharynx normal HEAD & SCALP: normocephalic and atraumatic NOSE: Normal nasal mucous membranes and turbinates present EXTERNAL EAR: Yes external ears normal EXTERNAL AUDITORY CANAL: EAC's normal TYMPANIC MEMBRANE: TM's normal bilaterally Eye: COMMON NORMALS: Equal, round and reactive pupils present, EOMs intact bilaterally, conjunctivae normal and no scleral icterus CONJUNCTIVA: Yes conjunctivae normal PUPIL: Yes Equal, round and reactive pupils present Neck/C-Spine: COMMON NORMALS: full ROM, no lymphadenopathy, supple and no JVD Lymph: LYMPHATIC: no lymphadenopathy noted and no lymphedema noted Resp: COMMON NORMALS: normal respiratory effort, No retractions, No use of accessory muscles and clear to auscultation bilaterally AUSCULTATION: clear to auscultation bilaterally Cardio: COMMON NORMALS: no JVD, regular rate, regular rhythm and No murmurs present (Cardio) RATE: regular rate RHYTHM: regular rhythm GI: COMMON NORMALS: Soft to palpation and No hepatosplenomegaly present AUSCULTATION: Yes normoactive bowel sounds PALPATION: Yes Soft to palpation, No Tenderness to palpation present (GI), No Guarding due to palpation present (GI) and Yes No hepatosplenomegaly present Extremity: COMMON NORMALS: normal to inspection, capillary refill normal, no clubbing, cyanosis or edema, no calf tenderness and no pedal edema Skin: COMMON NORMALS: no rashes or lesions noted GENERAL SKIN EXAM: no rashes or lesions noted Course Vital Signs: Vital signs: Vital Signs Temperature 98.5 F 04/12/20 10:00 Pulse Rate 88 04/12/20 13:58 Respiratory Rate 16 04/12/20 13:58 Blood Pressure 114/74 04/12/20 13:58 Pulse Oximetry 93 04/12/20 13:58 MDM - Altered Mental Status MDM Narrative: Medical decision making narrative: Does appear on the CT it looks like she has had some subacute strokes. We discussed different options offered admission and ultimately likely for placement. She not had a lot of follow-up with oncology discussed Dr. Haile he did not feel there is much else I can be done it would be appropriate 40 to go to the care home or be on hospice. After discussion with the family they decided to go on hospice discharged home hospice will consult in their home order written with prescription for initial medications for hospice enrollment. Lab Data: Labs: Lab Results 04/12/20 04/12/20 04/12/20 Range/Units 09:40 09:40 09:40 WBC 50.1 H* (4.0-10.0) 10^3/ uL RBC 3.52 L (4.1-5.3) 10^6/u L Hgb 11.3 L (11.5-15.3) g/dL Hct 36.6 L (37.0-47.0) % MCV 104.0 H (81-99) fL MCH 32.1 (28.0-34.0) pg MCHC 30.9 (30.0-36.0) g/dL RDW 18.3 H (12.1-15.1) % Plt Count 596 H (130-400) 10^3/c mm MPV 12.3 H (7.4-10.4) fL Lymph % (Auto) Not Reportable Carlisle % (Auto) Not Reportable Lymph # (Auto) Not Reportable [place] # (Auto) Not Reportable Total Counted 100 (0-100) Atypical Lymphs % 2.0 (0-5) % Absolute Neutrophi ls 42.1 H (1.4-6.5) 10^3/c mm Segmented Neutroph ils 77 % Abs Segm Neuts (Ma n) 38.6 H (1.6-7.1) 10/cmm Band Neutrophils 7.0 % Abs Band Neuts (Ma n) 3.5 H (0.0-1.2) 10^3/c mm Lymphocytes (Manua l) 10 % Monocytes (Manual) 0.0 % Absolute Monocytes 0.0 L (0.1-0.6) 10^3/c mm Eosinophils (Manua l) 0 % Absolute Eosinophi ls 0.0 (0.0-0.7) 10^3/c mm Basophils (Manual) 0.0 % Absolute Basophils 0.0 (0.0-0.2) 10^3/c mm Metamyelocytes 4.0 % Nucleated RBCs 2.0 H (0-1) /100WBC Platelet Estimate Increased H (Normal) Specimen Type Sample Site ABG pH (7.35-7.45) ABG pCO2 (35-45) mmHg ABG pO2 (80.0-100.0) mmH g ABG HCO3 (22-26) mmol/L ABG O2 Saturation ABG Base Excess (-2.0-2.0) mmol/ L Keanu Test A-a O2 Gradient (5-10) mmHg Hematocrit (37-47) % Hgb O2 Saturation (95-100) % Carboxyhemoglobin (0.4-20.1) %THgb Methemoglobin (0.4-1.5) % Total Hemoglobin (12-16) g/dL Ionized Calcium (1.1-1.4) mmol/L O2 Delivery Device FiO2 % [employer] Maker ID Sodium 140 (136-145) mmol/L Potassium 3.7 (3.5-5.1) mmol/L Chloride 104 (98-107) mmol/L Carbon Dioxide 24 (22-29) mmol/L Anion Gap 15.7 (5-19) BUN 11 (8-23) mg/dL Creatinine 1.0 H (0.5-0.9) mg/dL GFR Calculation Not Reportable Glucose 88 (65-115) mg/dL Calculated Osmolal ity 289 (285-295) mOsm/k g Lactic Acid (0.5-2.2) mmol/L Calcium 9.3 (8.5-10.5) mg/dL Total Bilirubin 0.4 (0.15-1.2) mg/dL AST 16 (0-32) U/L ALT 12 (0-33) U/L Alkaline Phosphata se 51 (35-105) IU/L Creatine Kinase 45 (26-192) U/L Troponin T Baselin e 13 H (0-10) ng/L Total Protein 7.4 (6.6-8.7) g/dL Albumin 4.5 (3.5-5.2) g/dL Globulin 2.9 (1.3-4.6) g/dL Lipase 15 (13-60) U/L Urine Color (Yellow) Urine Appearance (CLEAR) Urine pH (5-7) Ur Specific Gravit y (1.005-1.030) Urine Protein (Negative) Urine Glucose (UA) (Normal) Urine Ketones (Negative) Urine Blood (Negative) Urine Nitrate (Negative) Urine Bilirubin (Negative) Urine Urobilinogen (Negative) mg/dL Ur Leukocyte Alice ase (Negative) Urine RBC (0-2) /hpf Urine WBC (0-5) /hpf Ur Squamous Epith Cells (0-5) /hpf Amorphous Sediment /hpf Urine Bacteria (NONE) /hpf 04/12/20 04/12/20 04/12/20 Range/Units 10:16 10:30 11:43 WBC (4.0-10.0) 10^3/ uL RBC (4.1-5.3) 10^6/u L Hgb (11.5-15.3) g/dL Hct (37.0-47.0) % MCV (81-99) fL MCH (28.0-34.0) pg MCHC (30.0-36.0) g/dL RDW (12.1-15.1) % Plt Count (130-400) 10^3/c mm MPV (7.4-10.4) fL Lymph % (Auto) Carlisle % (Auto) Lymph # (Auto) [place] # (Auto) Total Counted (0-100) Atypical Lymphs % (0-5) % Absolute Neutrophi ls (1.4-6.5) 10^3/c mm Segmented Neutroph ils % Abs Segm Neuts (Ma n) (1.6-7.1) 10/cmm Band Neutrophils % Abs Band Neuts (Ma n) (0.0-1.2) 10^3/c mm Lymphocytes (Manua l) % Monocytes (Manual) % Absolute Monocytes (0.1-0.6) 10^3/c mm Eosinophils (Manua l) % Absolute Eosinophi ls (0.0-0.7) 10^3/c mm Basophils (Manual) % Absolute Basophils (0.0-0.2) 10^3/c mm Metamyelocytes % Nucleated RBCs (0-1) /100WBC Platelet Estimate (Normal) Specimen Type Arterial Sample Site Radial, right ABG pH 7.41 (7.35-7.45) ABG pCO2 39.7 (35-45) mmHg ABG pO2 59.4 L (80.0-100.0) mmH g ABG HCO3 25.0 (22-26) mmol/L ABG O2 Saturation 93.3 ABG Base Excess 0.3 (-2.0-2.0) mmol/ L Keanu Test Pos A-a O2 Gradient 5.4 (5-10) mmHg Hematocrit 35.0 L (37-47) % Hgb O2 Saturation 91.9 L (95-100) % Carboxyhemoglobin 1.2 (0.4-20.1) %THgb Methemoglobin 0.3 L (0.4-1.5) % Total Hemoglobin 11.4 L (12-16) g/dL Ionized Calcium 1.2 (1.1-1.4) mmol/L O2 Delivery Device Room air FiO2 21.0 % [employer] Maker ID [place] Sodium 142.0 (136-145) mmol/L Potassium 3.8 (3.5-5.1) mmol/L Chloride (98-107) mmol/L Carbon Dioxide (22-29) mmol/L Anion Gap (5-19) BUN (8-23) mg/dL Creatinine (0.5-0.9) mg/dL GFR Calculation Glucose 104.0 (65-115) mg/dL Calculated Osmolal ity (285-295) mOsm/k g Lactic Acid 1.7 (0.5-2.2) mmol/L Calcium (8.5-10.5) mg/dL Total Bilirubin (0.15-1.2) mg/dL AST (0-32) U/L ALT (0-33) U/L Alkaline Phosphata se (35-105) IU/L Creatine Kinase (26-192) U/L Troponin T Baselin e (0-10) ng/L Total Protein (6.6-8.7) g/dL Albumin (3.5-5.2) g/dL Globulin (1.3-4.6) g/dL Lipase (13-60) U/L Urine Color Yellow (Yellow) Urine Appearance Clear (CLEAR) Urine pH 5 (5-7) Ur Specific Gravit y 1.020 (1.005-1.030) Urine Protein Trace (Negative) Urine Glucose (UA) Norm (Normal) Urine Ketones Negative (Negative) Urine Blood 2+ H (Negative) Urine Nitrate Negative (Negative) Urine Bilirubin 1+ H (Negative) Urine Urobilinogen Norm (Negative) mg/dL Ur Leukocyte Alice ase Negative (Negative) Urine RBC 5-10 H (0-2) /hpf Urine WBC 0-4 H (0-5) /hpf Ur Squamous Epith Cells 0-4 H (0-5) /hpf Amorphous Sediment Trace /hpf Urine Bacteria 3+ H (NONE) /hpf Discharge Plan Discharge Patient Disposition: Home Clinical Impression: CVA (cerebrovascular accident), Chronic lymphocytic leukemia Condition: Stable Prescriptions: No Action hydrocodone-acetaminophen 10-325 mg tablet 1 tab PO Q6H PRN (Reason: Pain) RF: 0 Discharge Orders: Discharge ED (Routine); Ordered 04/12/20 Ordered By: Jakub Feliz Referrals: Oscar Haile MD [Primary Care Provider] - Discharge Diet: Usual diet Discharge Activity: Resume usual activity Activity Restrictions/Additional Instructions: Hospice will come to the home to do a consult to assist with cares. Follow-up with Dr. Haile. Coding Level of Care Code ED Candy Packer for Chg Fwd Exam Comprehensive NIH stroke score NIHSS Level Of Consciousness - 1a: 0 Level Of Consciousness Questions - 1b: Neither Correct Level Of Consciousness Commands - 1c: Neither Correct Best Gaze - 2: Normal Visual Hartmann - 3: No Visual Loss Facial Palsy - 4: Normal Motor Arm Right - 5: No Drift Motor Arm Left - 5: No Drift Motor Leg Right - 6: No Drift Motor Leg Left - 6: No Drift Limb Ataxia - 7: Absent Sensory - 8: Normal Best Language - 9: No Aphasia Dysarthia - 10: Normal Extinction And Inattention - 11: 0 Score Total Score: 4
[2020-04-12 10:44] LABS: Alanine Aminotransferase 12 U/L (0-33); Albumin Level 4.5 g/dL (3.5-5.2); Alkaline Phosphatase 51 IU/L (35-105); Anion Gap 15.7 (5-19); Aspartate Amino Transferase 16 U/L (0-32); Blood Urea Nitrogen 11 mg/dL (8-23); Calcium 9.3 mg/dL (8.5-10.5); Carbon Dioxide 24 mmol/L (22-29); Chloride 104 mmol/L (98-107); Creatine Phosphokinase 45 U/L (26-192); Globulin 2.9 g/dL (1.3-4.6); Glucose 88 mg/dL (65-115); Lipase 15 U/L (13-60); Osmolality Calculated 289 mOsm/kg (285-295); Potassium 3.7 mmol/L (3.5-5.1); Sodium 140 mmol/L (136-145); Total Bilirubin 0.4 mg/dL (0.15-1.2); Total Protein 7.4 g/dL (6.6-8.7)
[2020-04-12 10:46] LABS: Troponin(5th) Baseline 13 ng/L (0-10)
[2020-04-12 11:06] LABS: Lactic Sepsis W/Reflex 1.7 mmol/L (0.5-2.2)
[2020-04-12 11:14] LABS: Slide Review Slide Review Perform
[2020-04-12 11:29] LABS: Absolute Segmented Neutrophil 38.6 10/cmm (1.6-7.1); Band Neutrophils Absolute 3.5 10^3/cmm (0.0-1.2); Eosinophils 0 %; Lymphocytes 10 %; Segmented Neutrophils 77 %; Total Cells Counted 100 (0-100); White Blood Count 50.1 10^3/uL (4.0-10.0)
[2020-04-12 11:30] LABS: Absolute Neutrophil 42.1 10^3/cmm (1.4-6.5); Platelet Estimate Increased (Normal)
[2020-04-12 13:20] LABS: Add Urine Microscopic? YES; Bilirubin Urine 1+ (Negative); Blood Urine 2+ (Negative); Glucose Urine UA Norm (Normal); Ketones Urine Negative (Negative); Leukocyte Esterase Urine Negative (Negative); Nitrate Urine Negative (Negative); Protein Urine Trace (Negative); Urine Appearance Clear (CLEAR); Urine Color Yellow (Yellow); Urobilinogen Urine Norm (Negative); pH Urine 5 (5-7)
[2020-04-12 13:21] LABS: Amorphous Sediment Urine TRACE /hpf; Bacteria Urine 3+ /hpf; Squamous Epithelial Cell Urine 0-4 /hpf (0-5)
[2020-04-12 13:22] LABS: Add Urine Culture? Yes; WBC Urine 0-4 /hpf (0-5)
--- NOTE | 2020-04-12 13:37 | DCPLANNER ---
manager relocation was asked to speak with patients family about hospice care. manager relocation spoke with patients daughter and son about which hospice, they stated that they would like to use [facility] for Hospice. manager relocation called [facility], spoke with [place], and had physician put in the order for hospice care.
[2020-04-12 13:58] VITALS: BP 114/74; PULSE 88; RESP 16; O2SAT 93
== END 2020-04-12 13:58 | disposition home or self-care (01) ==
PROVIDERS: Emergency Provider Family Medicine; PCP Internal Medicine Medical Oncology
DX: I63.9 Cerebral infarction, unspecified (principal); C91.10 Chronic lymphocytic leukemia of B-cell type not having achieved remission
CPT/HCPCS: 12345; 36600; 70450; 71045; 80051; 80053; 81001; 82330; 82550; 82805; 83605; 83690; 84484; 85007; 85025; 87086; 93005; 99282; 99283